=== PATIENT | male | born 1955 | race Caucasian/White ===

== ENCOUNTER 2023-04-10 13:16 | Emergency (ER) | payer OTHER | END 2023-04-10 14:01 | disposition home or self-care (01) | LOC: MADERS 13:16 | DX: S01.21XA Laceration without foreign body of nose, initial encounter (principal); E11.9 Type 2 diabetes mellitus without complications; W22.8XXA Striking against or struck by other objects, initial encounter; Y93.89 Activity, other specified | CPT/HCPCS: 99283 ==